=== PATIENT | female | born 1990 | race Caucasian/White ===

== ENCOUNTER 2016-08-14 13:35 | Day surgery (SDC) | payer MEDICAID, OTHER ==
[2016-08-14] MEDS ORDERED: MIDAZOLAM 2 MG/2 ML VIAL ONE (14:34)
[2016-08-14] MEDS ORDERED: fentaNYL 100 MCG/2 ML INJ ONE (14:35)
[2016-08-14] MEDS ORDERED: NALOXONE HCL 0.4 MG/ML INJ ONE (14:35)
[2016-08-14] MEDS ORDERED: FLUMAZENIL 0.5 MG/5 ML MDV IVP ONE (14:35)
[2016-08-14] MEDS ORDERED: TRIAMCINOLONE ACETONIDE 200 MG/5 ML MDV IM ONE (15:14)
[2016-08-14] MEDS ORDERED: LIDOCAINE 1% 30 ML SDV ONE (15:14)
== END 2016-08-14 15:53 | disposition home or self-care (01) ==
LOC: FIMAGING 13:35
PROVIDERS: ATTEND Radiology Diagnostic Radiology
PROC: 3E0S33Z Introduction of Anti-inflammatory into Epidural Space, Percutaneous Approach (ICD-10-PCS; principal; 2016-08-14 15:21)
PROC: 3E0S3BZ Introduction of Anesthetic Agent into Epidural Space, Percutaneous Approach (ICD-10-PCS; principal; 2016-08-14 15:21)
DX: M54.12 Radiculopathy, cervical region (principal); M25.512 Pain in left shoulder; M25.511 Pain in right shoulder
CPT/HCPCS: J2250; J2310; J3010; J3301

== ENCOUNTER 2016-10-09 03:06 | Emergency (ER) | payer MEDICAID ==
[2016-10-09] MEDS ORDERED: HALOPERIDOL LACT 5 MG/ML INJ ONE (03:14)
[2016-10-09] MEDS ORDERED: MIDAZOLAM 2 MG/2 ML VIAL ONE (03:17)
[2016-10-09] MEDS ORDERED: OLANZapine 10 MG/2 ML VIAL IM ONE (03:23)
[2016-10-09] MEDS ORDERED: MIDAZOLAM 10 MG/2 ML VIAL IM ONE (03:25)
[2016-10-09 03:45] VITALS: TEMP 97.9
--- NOTE | 2016-10-09 04:18 | EDPHY ---
H & P Stated Complaint: chemically impaired Time Seen by Provider: 10/09/16 03:10 HPI/ROS: HPI The patient presents brought in by ambulance for combative behavior. The patient was found at [facility]. She had been drinking alcohol earlier in the night. She was agitated and yelling and screaming and thus police were called. She received Versed 5 mg IM in the ambulance and has been kicking and screaming. REVIEW OF SYSTEMS Constitutional: No fever, no chills. Eyes: No discharge. ENT: No sore throat. Cardiovascular: No chest pain, no palpitations. Respiratory: No cough, no shortness of breath. Gastrointestinal: No abdominal pain, no vomiting. Genitourinary: No hematuria. Musculoskeletal: No back pain. Skin: No rashes. Neurological: No headache. PMHx: Psychiatric disease Soc Hx: IV drug user by report PHYSICAL General Appearance: Thrashing about in the gurney, requiring security guards to restrain her Eyes: Pupils equal and round no pallor or injection ENT, Mouth: Mucous membranes moist Respiratory: There are no retractions, lungs are clear to auscultation Cardiovascular: Tachycardic rate with regular rhythm Gastrointestinal: Abdomen is soft and non-tender, no masses, bowel sounds normal Neurological: A&O, moves all extremities Skin: Warm and dry, track barton are present, ecchymoses throughout her arms and legs Musculoskeletal: Neck is supple non tender Extremities: symmetrical, full range of motion Psychiatric: The patient is agitated Source: Patient, EMS Exam Limitations: Intoxication - Personal History Tetanus Vaccine Date: 2002 - Medical/Surgical History Hx Asthma: No Hx Chronic Respiratory Disease: No Hx Diabetes: No Hx Cardiac Disease: No Hx Renal Disease: No Hx Cirrhosis: No Hx Alcoholism: No Hx HIV/AIDS: No Hx Splenectomy or Spleen Trauma: No - Social History Smoking Status: Current every day smoker Constitutional: Initial Vital Signs Temperature (C) 36.6 C 10/09/16 03:15 Heart Rate 150 H 10/09/16 03:15 Respiratory Rate 20 10/09/16 03:15 Blood Pressure 123/92 H 10/09/16 03:15 O2 Sat (%) 93 10/09/16 03:15 O2 Delivery Mode Nasal Cannula O2 (L/minute) 2 Allergies/Adverse Reactions: vancomycin [Vancomycin] Allergy (Intermediate, Verified 08/12/16 08:07) Rash sertraline HCl [From Zoloft] Allergy (Mild, Verified 08/12/16 08:07) Rash lactose Allergy (Verified 08/12/16 08:37) Home Medications: Medication Instructions Recorded Albuterol 8 puffs PO DAILY 08/12/16 Cymbalta 90 mg PO DAILY 08/12/16 Flexeril 10 MG (*) 10 mg PO DAILY 08/12/16 IBUPROFEN 600 mg PO BID PRN 08/12/16 LYRICA 100 mg PO TID 08/12/16 Xtampza ER 30 mg PO BID 08/12/16 oxyCODONE IR 10 mg PO TID PRN 08/12/16 Medical Decision Making Differential Diagnosis: This is a 25-year-old female brought in by ambulance for evaluation for combative behavior, coming from a restaurant with a bar. She has been drinking alcohol tonight, by report. She also has a history of IV drug use. Differential diagnosis includes alcohol intoxication, substance abuse, psychosis. In the emergency room, patient required additional dose of Versed 5 IM and then was able to sleep comfortably. She awoke about an hour and half later and appeared clearly intoxicated with alcohol. She denies any other complaints. She wants to go home, however she is on in [facility] hold feel it is best that she goes there. Police were called and had to escort her out in handcuffs. - Data Points Medications Given: Discontinued Medications Midazolam HCl (Versed) 5 mg IM EDNOW ONE Stop: 10/09/16 03:26 Last Admin: 10/09/16 03:35 Dose: 5 mg Olanzapine (Zyprexa Im Injection) 10 mg IM EDNOW ONE Stop: 10/09/16 03:24 Last Admin: 10/09/16 04:27 Dose: Not Given Departure - Departure Disposition: Home, Routine, Self-Care Clinical Impression: Polysubstance abuse Alcoholic intoxication Qualifiers: Complication of substance-induced condition: with delirium Qualified Code(s): F10.921 - Alcohol use, unspecified with intoxication delirium Condition: Good Instructions: Alcohol Intoxication (ED) Referrals: [facility] [Outside] - As per Instructions
[2016-10-09 04:36] VITALS: O2SAT 96
[2016-10-09 05:50] VITALS: BP 110/65; PULSE 90; RESP 18
== END 2016-10-09 06:05 | disposition home or self-care (01) ==
LOC: EDUNIT#
DX: F19.10 Other psychoactive substance abuse, uncomplicated (principal); F10.921 Alcohol use, unspecified with intoxication delirium; F17.200 Nicotine dependence, unspecified, uncomplicated
CPT/HCPCS: J2250

== ENCOUNTER → 2016-11-10 | Outpatient (CLI) | payer MEDICAID ==
[~2016-11-10] MED LIST: DEPO METHYLPREDNISOLONE 40 MG/ML SDV ONE; IOPAMIDOL (ISOVUE 370) 100 ML BTL IV ONE; LIDOCAINE 1% 300 MG/30 ML SDV ONE; ROPIVACAINE HCL 150 MG/30 ML INJ ONE
== END ==
LOC: FIMAGING 13:20
PROVIDERS: ATTEND Clinical Nurse Specialist
PROC: 3E0U3BZ Introduction of Anesthetic Agent into Joints, Percutaneous Approach (ICD-10-PCS; principal; 2016-11-10)
PROC: 3E0U33Z Introduction of Anti-inflammatory into Joints, Percutaneous Approach (ICD-10-PCS; principal; 2016-11-10)
DX: M25.511 Pain in right shoulder (principal); M54.12 Radiculopathy, cervical region
CPT/HCPCS: J1030; J2795; Q9967

== ENCOUNTER 2017-10-08 01:25 | Emergency (ER) | payer OTHER ==
--- NOTE | 2017-10-08 02:46 | EDPHY ---
H & P Stated Complaint: bilat hand swelling secondary to IVDU, noticed/started 10/06 Time Seen by Provider: 10/08/17 01:47 HPI/ROS: HPI The patient presents with bilateral hand swelling on the right greater than the left which has been present for the last 3 days. She injected heroin into her right hand but thinks that she missed her vein. Her swelling began shortly after that, it is on the dorsal surface of her hand. She does not have any pain in her arm. She checked her temperature at home and was noted to have a fever. She used cocaine just prior to arrival in the emergency department. She has no difficulty moving her fingers.. REVIEW OF SYSTEMS Constitutional: No fever, no chills. Eyes: No discharge. ENT: No sore throat. Cardiovascular: No chest pain, no palpitations. Respiratory: No cough, no shortness of breath. Gastrointestinal: No abdominal pain, no vomiting. Genitourinary: No hematuria. Musculoskeletal: No back pain. Skin: No rashes. Neurological: No headache. PMHx: IV drug use Soc Hx: Housed, college student PHYSICAL General Appearance: Alert, no distress Eyes: Pupils equal and round no pallor or injection ENT, Mouth: Mucous membranes moist Respiratory: There are no retractions, lungs are clear to auscultation Cardiovascular: Tachycardic rate and regular rhythm Gastrointestinal: Abdomen is soft and non-tender, no masses, bowel sounds normal Neurological: A&O, moves all extremities Skin: Warm and dry, no rashes Musculoskeletal: Neck is supple non tender Extremities: Right hand is slightly edematous with no erythema, it is diffusely tender to palpation on the dorsal surface. She has 2+ radial pulses, sensation intact to light touch, brisk cap refill Psychiatric: Patient is oriented X 3, there is no agitation Source: Patient Exam Limitations: No limitations - Personal History LMP (Females 10-55): 8-14 Days Ago Current Tetanus/Diphtheria Vaccine: No Current Tetanus Diphtheria and Acellular Pertussis (TDAP): No Tetanus Vaccine Date: 2002 - Medical/Surgical History Hx Asthma: Yes Hx Chronic Respiratory Disease: No Hx Diabetes: No Hx Cardiac Disease: No Hx Renal Disease: No Hx Cirrhosis: No Hx Alcoholism: Yes Hx HIV/AIDS: No Hx Splenectomy or Spleen Trauma: No Other PMH: substance abuse, asthma, gallstones, cholecystectomy, bunionectomy, anxiety, depression, sacroiliac septic arthritis, insomnia, chronic back/ shoulder pain, kyphoscoliosis - Social History Smoking Status: Current every day smoker Constitutional: Initial Vital Signs Temperature (C) 37.3 C 10/08/17 01:33 Heart Rate 155 H 10/08/17 01:33 Respiratory Rate 20 10/08/17 01:33 Blood Pressure 148/106 H 10/08/17 01:33 O2 Sat (%) 90 L 10/08/17 01:33 O2 Delivery Mode Room Air Allergies/Adverse Reactions: vancomycin [Vancomycin] Allergy (Intermediate, Verified 10/08/17 01:30) Rash sertraline HCl [From Zoloft] Allergy (Mild, Verified 10/08/17 01:30) Rash lactose Allergy (Verified 10/08/17 01:30) Home Medications: Medication Instructions Recorded Albuterol 8 puffs PO DAILY 08/12/16 Cymbalta 90 mg PO DAILY 08/12/16 Flexeril 10 MG (*) 10 mg PO DAILY 08/12/16 Buprenorphin-Naloxon 8-2 mg Sl 10/08/17 Cephalexin [Keflex (*)] 500 mg PO Q6H #28 cap 10/08/17 Fluconazole [Diflucan (*)] 150 mg PO ONCE #1 tab 10/08/17 Gabapentin 10/08/17 Seroquel 10/08/17 Sodium Sulfacetamide 10/08/17 Sulfamethox/Tmp 800/160 mg 1 tab PO BID #14 tab 10/08/17 [Bactrim Ds] Medical Decision Making Procedures: Bedside right hand Ultrasound- performed and interpreted by me. Indication: Right hand swelling Findings: Mild edema without any fluid collections present, no foreign body Impression: Mild edema Differential Diagnosis: 26-year-old female with history of IV drug use presents with right hand swelling for the last 3 days after injecting into her hand. She also reports a fever at home. Here, she is afebrile, she is quite tachycardic, initially 155, now 130s. She does admit to using cocaine just prior to arrival and I suspect this is the cause of her tachycardia instead of sepsis. Ultrasound of her hand was performed which showed no fluid collections. I suspect she has a mild cellulitis of her hand. I will treat her with Keflex and Bactrim. I have given her strict return precautions. I have given her the hand surgeon for follow-up. - Data Points Medications Given: Discontinued Medications Cephalexin (Keflex 500 Mg Prepack#4) 1 btl TAKEHOME EDNOW ONE PRN Reason: Protocol Stop: 10/08/17 02:44 Last Admin: 10/08/17 02:52 Dose: 1 btl Cephalexin HCl (Keflex) 500 mg PO EDNOW ONE PRN Reason: Protocol Stop: 10/08/17 02:44 Last Admin: 10/08/17 02:51 Dose: 500 mg Trimethoprim/Sulfamethoxazole (Bactrim Ds Prepack#2) 1 btl TAKEHOME EDNOW ONE Stop: 10/08/17 02:44 Last Admin: 10/08/17 02:53 Dose: 1 btl Trimethoprim/Sulfamethoxazole (Bactrim Ds) 1 ea PO EDNOW ONE PRN Reason: Protocol Stop: 10/08/17 02:44 Last Admin: 10/08/17 02:51 Dose: 1 ea Departure - Departure Disposition: Home, Routine, Self-Care Clinical Impression: Cellulitis of hand, right Condition: Good Instructions: Polysubstance Abuse (ED) Additional Instructions: Please take the antibiotics as prescribed. You should return to the emergency department if you are worse in any way, develops any more swelling, pain in your hands. If the swelling continues, I have given you the information for follow up with the hand specialist. Referrals: Mello Alvarez MD [Medical Doctor] - As per Instructions Stand Alone Forms: School Excuse Prescriptions: Cephalexin [Keflex (*)] 500 mg PO Q6H #28 cap Fluconazole [Diflucan (*)] 150 mg PO ONCE #1 tab Sulfamethox/Tmp 800/160 mg [Bactrim Ds] 1 tab PO BID #14 tab
[2017-10-08] MEDS: CEPHALEXIN 500 MG CAP PO ONE (02:51)
[2017-10-08] MEDS: SULFAMETHOX/TMP 800/160 MG 1 TAB PO ONE (02:51)
[2017-10-08] MEDS: CEPHALEXIN 500MG PREPACK#4 BTL TAKEHOME ONE (02:52)
[2017-10-08] MEDS: SULFAMET/TMP DS PREPACK#2 BTL TAKEHOME ONE (02:53)
[2017-10-08 03:20] VITALS: BP 135/81
== END 2017-10-08 03:02 | disposition home or self-care (01) ==
LOC: EEVIPCON 01:25
DX: L03.113 Cellulitis of right upper limb (principal); J45.909 Unspecified asthma, uncomplicated; F17.200 Nicotine dependence, unspecified, uncomplicated

== ENCOUNTER 2017-10-15 04:38 | Emergency (ER) | payer OTHER ==
[2017-10-15] MEDS ORDERED: NS 1,000 ML IV ONE ×2 (04:45→06:23)
[2017-10-15] MEDS ORDERED: LORazepam 2 MG/ML INJ IVP ONE (04:46)
--- NOTE | 2017-10-15 04:48 | EDPHY ---
H & P Stated Complaint: Cocaine/heroin IV use, Time Seen by Provider: 10/15/17 04:46 HPI/ROS: HPI CHIEF COMPLAINT: Polysubstance abuse HISTORY OF PRESENT ILLNESS: Patient is a 26-year-old female, she presents emergency room by EMS after she injected cocaine, as well as heroin. She states around 11:00 p.m. Last night or close to 5 hr ago she injected heroin. However she is on Suboxone and she states she did not get high from the heroin. About an hour ago she injected cocaine. She states that she felt her heart racing and pelvic heart was going to stop she became concerned and called 911. EMS arrived and evaluated her brought her here to the emergency room. Patient denies any chest pain. Denies any shortness of breath. Patient arrived to the emergency room and is noted to be tachycardic in the 130s. She is tremulous. She denies any pain anywhere. Past Medical History: Polysubstance abuse, IV drug user, typically shoot IV heroin and IV cocaine. Past Surgical History: No recent surgery Social History: Polysubstance abuse. Heroin and cocaine. Family History: Noncontributory ROS REVIEW OF SYSTEMS: A comprehensive 10 point review of systems is otherwise negative aside from elements mentioned in the history of present illness. Exam Constitutional nontoxic appearing triage nursing summary reviewed, vital signs reviewed, awake/alert. Noted to be tachycardic. Eyes normal conjunctivae and sclera, EOMI, PERRLA. HENT normal inspection, atraumatic, moist mucus membranes, no epistaxis, neck supple/ no meningismus, no raccoon eyes. Respiratory clear to auscultation bilaterally, normal breath sounds, no respiratory distress, no wheezing. Cardiovascular tachycardic. regular rhythm, no murmur, no edema, distal pulses normal. Gastrointestinal soft, non-tender, no rebound, no guarding, normal bowel sounds, no distension, no pulsatile mass. Genitourinary no CVA tenderness. Musculoskeletal no midline vertebral tenderness, full range of motion, no calf swelling, no tenderness of extremities, no meningismus, good pulses, neurovascularly intact. Skin multiple injection sites throughout her body. Track barton. Neurologic slightly tremulous. awake, alert and oriented x 3, AAOx3, moves all 4 extremities equally, motor intact, sensory intact, CN II-XII intact, normal cerebellar, normal vision, normal speech. Psychiatric normal mood/affect. Heme/Lymph/Immune no lymphadenopathy. Differential Diagnosis: Includes but is not limited to in a particular order polysubstance abuse, IV drug use, cocaine overdose, tachycardia from cocaine, acute coronary syndrome, coronary vaso spasm Medical Decision Making: Plan for this patient IV establishment with fluid bolus, IV Ativan 1 mg to counter at cocaine, EKG, cardiac marker, electrolytes and close cardiac monitoring. Re-evaluation: EKG interpretation by me on record in [facility] system. Impression time of EKG 4:54 a.m., sinus tachycardia rate of 123, no ST elevation no ST depression no significant T-wave abnormalities no signs of cardiac arrhythmia. This will be sinus tachycardia. Reason for EKG cocaine toxicity. ED x-ray chest one view negative for acute cardiopulmonary disease. No pneumothorax. [id number]: Patient resting comfortably no acute distress she feels much better after IV fluids. Heart rate is currently 108 at this time. She denies any chest pain or shortness of breath. Patient's drug screen positive for cocaine and heroin. She is doing much better. Highly recommend the patient refrain from doing drugs cocaine and heroin. Explain these are very dangerous. Especially shooting up cocaine. She understands. 0719: Patient re-evaluated she is resting comfortably and she is eager for discharge. Heart rate is currently 99. She denies any chest pain or shortness of breath. She states she feels much better after IV fluids and IV Ativan. I discussed the risk of doing intravenous cocaine and that it is very dangerous she understands Source: Patient, EMS - Personal History LMP (Females 10-55): 8-14 Days Ago Current Tetanus Diphtheria and Acellular Pertussis (TDAP): No Tetanus Vaccine Date: 2002 - Medical/Surgical History Hx Asthma: Yes Hx Chronic Respiratory Disease: No Hx Diabetes: No Hx Cardiac Disease: No Hx Renal Disease: No Hx Cirrhosis: No Hx Alcoholism: Yes Hx HIV/AIDS: No Hx Splenectomy or Spleen Trauma: No Other PMH: substance abuse, asthma, gallstones, cholecystectomy, bunionectomy, anxiety, depression, sacroiliac septic arthritis, insomnia, chronic back/ shoulder pain, kyphoscoliosis - Social History Smoking Status: Current every day smoker Constitutional: Initial Vital Signs Temperature (C) 37.7 C 10/15/17 04:41 Heart Rate 133 H 06/15/18 04:41 Respiratory Rate 20 10/15/17 04:41 Blood Pressure 119/86 H 10/15/17 04:41 O2 Sat (%) 99 10/15/17 04:41 O2 Delivery Mode Room Air Allergies/Adverse Reactions: vancomycin [Vancomycin] Allergy (Intermediate, Verified 10/15/17 04:45) Rash sertraline HCl [From Zoloft] Allergy (Mild, Verified 10/15/17 04:45) Rash lactose Allergy (Verified 10/15/17 04:45) Home Medications: Medication Instructions Recorded Albuterol 8 puffs PO DAILY 08/12/16 Cymbalta 90 mg PO DAILY 08/12/16 Flexeril 10 MG (*) 10 mg PO DAILY 08/12/16 Buprenorphin-Naloxon 8-2 mg Sl 10/08/17 Cephalexin [Keflex (*)] 500 mg PO Q6H #28 cap 10/08/17 Fluconazole [Diflucan (*)] 150 mg PO ONCE #1 tab 10/08/17 Gabapentin 10/08/17 Seroquel 10/08/17 Sodium Sulfacetamide 10/08/17 Sulfamethox/Tmp 800/160 mg 1 tab PO BID #14 tab 10/08/17 [Bactrim Ds] Medical Decision Making - Data Points Laboratory Results: Laboratory Results 10/15/17 05:05 10/15/17 05:05 10/15/17 10/15/17 10/15/17 06:24 05:05 05:05 WBC RBC Hgb Hct MCV MCH MCHC RDW Plt Count MPV Neut % (Auto) Lymph % (Auto) [place] % (Auto) Eos % (Auto) Baso % (Auto) Nucleat RBC Rel Count Absolute Neuts (auto) Absolute Lymphs (auto) Absolute Monos (auto) Absolute Eos (auto) Absolute Basos (auto) Absolute Nucleated RBC Immature Gran % Immature Gran # Sodium 135 mEq/L mEq/L (135-145) Potassium 4.7 mEq/L mEq/L (3.3-5.0) Chloride 104 mEq/L mEq/L (97-110) Carbon Dioxide 19 mEq/l L mEq/l (22-31) Anion Gap 12 mEq/L mEq/L (8-16) BUN 8 mg/dL mg/dL (7-23) Creatinine 0.7 mg/dL mg/dL (0.6-1.0) Estimated GFR > 60 Glucose 90 mg/dL mg/dL (70-100) Calcium 8.8 mg/dL mg/dL (8.5-10.4) Magnesium 1.7 mg/dL mg/dL (1.6-2.3) Total Bilirubin 1.2 mg/dL mg/dL (0.1-1.4) Conjugated Bilirubin 0.8 mg/dL H mg/dL (0.0-0.5) Unconjugated Bilirubin 0.4 mg/dL mg/dL (0.0-1.1) AST 44 IU/L IU/L (14-46) ALT 33 IU/L IU/L (9-52) Alkaline Phosphatase 74 IU/L IU/L (38-126) Total Protein 6.4 g/dL g/dL (6.3-8.2) Albumin 3.8 g/dL g/dL (3.5-5.0) Beta HCG, Qual NEGATIVE Specimen Hemolysis 158 Urine Opiates Screen NON-NEGATIVE H (NEGATIVE) Urine Barbiturates NEGATIVE (NEGATIVE) Ur Phencyclidine Scrn NEGATIVE (NEGATIVE) Ur Amphetamine Screen NEGATIVE (NEGATIVE) U Benzodiazepines Scrn NEGATIVE (NEGATIVE) Urine Cocaine Screen NON-NEGATIVE H (NEGATIVE) U Marijuana (THC) Screen NEGATIVE (NEGATIVE) 10/15/17 05:05 WBC 9.90 10^3/uL H 10^3/uL (3.80-9.50) RBC 4.62 10^6/uL 10^6/uL (4.18-5.33) Hgb 14.8 g/dL g/dL (12.6-16.3) Hct 40.5 % % (38.0-47.0) MCV 87.7 fL fL (81.5-99.8) MCH 32.0 pg pg (27.9-34.1) MCHC 36.5 g/dL g/dL (32.4-36.7) RDW 12.0 % % (11.5-15.2) Plt Count 197 10^3/uL 10^3/uL (150-400) MPV 9.0 fL fL (8.7-11.7) Neut % (Auto) 57.0 % % (39.3-74.2) Lymph % (Auto) 34.1 % % (15.0-45.0) [place] % (Auto) 7.0 % % (4.5-13.0) Eos % (Auto) 1.1 % % (0.6-7.6) Baso % (Auto) 0.5 % % (0.3-1.7) Nucleat RBC Rel Count 0.0 % % (0.0-0.2) Absolute Neuts (auto) 5.64 10^3/uL 10^3/uL (1.70-6.50) Absolute Lymphs (auto) 3.38 10^3/uL H 10^3/uL (1.00-3.00) Absolute Monos (auto) 0.69 10^3/uL 10^3/uL (0.30-0.80) Absolute Eos (auto) 0.11 10^3/uL 10^3/uL (0.03-0.40) Absolute Basos (auto) 0.05 10^3/uL 10^3/uL (0.02-0.10) Absolute Nucleated RBC 0.00 10^3/uL 10^3/uL (0-0.01) Immature Gran % 0.3 % % (0.0-1.1) Immature Gran # 0.03 10^3/uL 10^3/uL (0.00-0.10) Sodium Potassium Chloride Carbon Dioxide Anion Gap BUN Creatinine Estimated GFR Glucose Calcium Magnesium Total Bilirubin Conjugated Bilirubin Unconjugated Bilirubin AST ALT Alkaline Phosphatase Total Protein Albumin Beta HCG, Qual Specimen Hemolysis Urine Opiates Screen Urine Barbiturates Ur Phencyclidine Scrn Ur Amphetamine Screen U Benzodiazepines Scrn Urine Cocaine Screen U Marijuana (THC) Screen Medications Given: Discontinued Medications Sodium Chloride (Ns) 1,000 mls @ 0 mls/hr IV EDNOW ONE; Wide Open PRN Reason: Protocol Stop: 10/15/17 04:46 Last Admin: 10/15/17 04:52 Dose: 1,000 mls Sodium Chloride (Ns) 1,000 mls @ 0 mls/hr IV ONCE ONE PRN Reason: Wide Open Stop: 10/15/17 06:24 Last Admin: 10/15/17 06:30 Dose: 1,000 mls Lorazepam (Ativan Injection) 1 mg IVP EDNOW ONE Stop: 10/15/17 04:47 Last Admin: 10/15/17 04:52 Dose: 1 mg Departure - Departure Disposition: Home, Routine, Self-Care Clinical Impression: Polysubstance abuse Condition: Good Instructions: Polysubstance Abuse (ED) Additional Instructions: 1. I recommend he refrain from doing drugs. Referrals: NONE *PRIMARY CARE P,. [Primary Care Provider] - As per Instructions
--- NOTE | 2017-10-15 04:56 | CPEKG ---
Heart Rate: 123 RR Interval: 488 P-R Interval: 128 QRSD Interval: 78 QT Interval: 328 QTC Interval: 470 P [place]: 76 QRS [place]: 74 T Wave [place]: 55 EKG Severity - BORDERLINE ECG - EKG Impression: SINUS TACHYCARDIA EKG Impression: PROBABLE LEFT ATRIAL ABNORMALITY Electronically Signed By: Des Fonseca 15-Oct-2017 07:27:11
[2017-10-15 05:15] LABS: PLATELET COUNT 197 10^3/uL (150-400)
[2017-10-15 07:36] VITALS: BP 102/89
== END 2017-10-15 07:36 | disposition home or self-care (01) ==
LOC: EDUNIT#
DX: F19.10 Other psychoactive substance abuse, uncomplicated (principal); J45.909 Unspecified asthma, uncomplicated; F17.200 Nicotine dependence, unspecified, uncomplicated; E86.9 Volume depletion, unspecified
CPT/HCPCS: 80305; 96374; J2060

== ENCOUNTER 2017-10-30 22:17 | Emergency (ER) | payer OTHER ==
--- NOTE | 2017-10-30 23:04 | EDPHY ---
H & P Stated Complaint: USE FEMORAL VEINS AND ARTERIES DRUG USE/LARGE BRUISE Time Seen by Provider: 10/30/17 22:34 HPI/ROS: HPI The patient presents with ecchymoses of bilateral thighs which have been present for the last 1 week and are getting progressively larger in size. She has a history of injection drug use of heroin and cocaine and has been injecting into her femoral region, including her artery and vein. She has been injecting in this region for the last 2 weeks. About 1 week ago she began to notice ecchymoses of her anterior thighs which have gotten progressively larger and slightly more painful. She has last used a few days ago in the area. She has not had any fevers or chills, difficulty walking, nausea or vomiting. She has not had any drainage of fluid from her injection sites. She last used prior to arrival. REVIEW OF SYSTEMS Constitutional: No fever, no chills. Eyes: No discharge. ENT: No sore throat. Cardiovascular: No chest pain, no palpitations. Respiratory: No cough, no shortness of breath. Gastrointestinal: No abdominal pain, no vomiting. Genitourinary: No hematuria. Musculoskeletal: No back pain. Skin: No rashes. Neurological: No headache. PMHx: Injection drug use as above, asthma, depression Soc Hx: Lives with her aunt in [place], previously had 3 years of sobriety PHYSICAL General Appearance: Alert, no distress Eyes: Pupils equal and round no pallor or injection ENT, Mouth: Mucous membranes moist Respiratory: Breathing comfortably Cardiovascular: Tachycardic rate and regular rhythm Gastrointestinal: Abdomen is soft and non-tender, no masses, bowel sounds normal Neurological: A&O, moves all extremities Skin: Bilateral open ulcerations just distal to her inguinal ligament with no surrounding erythema, warmth, edema, there are symmetric ecchymoses to her anterior thighs distal to these ulcerations which are large and cover her entire proximal half of anterior thigh Musculoskeletal: Neck is supple non tender Extremities: symmetrical, full range of motion Psychiatric: Patient is oriented X 3, there is no agitation Source: Patient Exam Limitations: No limitations - Personal History LMP (Females 10-55): 15-21 Days Ago Current Tetanus Diphtheria and Acellular Pertussis (TDAP): Yes Tetanus Vaccine Date: 2002 - Medical/Surgical History Hx Asthma: Yes Hx Chronic Respiratory Disease: No Hx Diabetes: No Hx Cardiac Disease: No Hx Renal Disease: No Hx Cirrhosis: No Hx Alcoholism: Yes Hx HIV/AIDS: No Hx Splenectomy or Spleen Trauma: No Other PMH: substance abuse, asthma, gallstones, cholecystectomy, bunionectomy, anxiety, depression, sacroiliac septic arthritis, insomnia, chronic back/ shoulder pain, kyphoscoliosis - Social History Smoking Status: Heavy smoker Constitutional: Initial Vital Signs Temperature (C) 36.9 C 10/30/17 22:25 Heart Rate 140 H 10/30/17 22:25 Respiratory Rate 22 H 10/30/17 22:25 Blood Pressure 134/107 H 10/30/17 22:25 O2 Sat (%) 91 L 10/30/17 22:25 O2 Delivery Mode Room Air Allergies/Adverse Reactions: vancomycin [Vancomycin] Allergy (Intermediate, Verified 10/15/17 04:45) Rash sertraline HCl [From Zoloft] Allergy (Mild, Verified 10/15/17 04:45) Rash lactose Allergy (Verified 10/15/17 04:45) Home Medications: Medication Instructions Recorded Albuterol 8 puffs PO DAILY 08/12/16 Cymbalta 90 mg PO DAILY 08/12/16 Flexeril 10 MG (*) 10 mg PO DAILY 08/12/16 Gabapentin 10/08/17 Seroquel 10/08/17 Sulfamethox/Tmp 800/160 mg 1 tab PO BID #14 tab 10/08/17 [Bactrim Ds] Medical Decision Making Procedures: Bedside bilateral thigh soft tissue Ultrasound- performed and interpreted by me. Indication: IV drug use with soft tissue swelling Findings: There is no cobblestoning, no areas of fluid collection, femoral veins are collapsible bilaterally Impression: No sonographic evidence of abscess, cellulitis, proximal DVT Differential Diagnosis: 26-year-old female with history of injection drug use presents with bilateral anterior thigh ecchymoses which have been present for the last 1 week getting progressively bigger. This is in the setting of injection into her femoral region, she believes into both the vein and artery. On exam, she is tachycardic, however she has recently use cocaine, she is feeling anxious, on review of old records resting heart rate is 110-130. She does not have any areas of fluctuance, however ultrasound was performed by me and I did not identify any fluid collections of her anterior thighs. I do not suspect she has a hematoma or abscess. I believe she has injury to her vessels causing this amount of ecchymoses and I have explained this to her. There is no sign of any active bleeding. I have instructed her to use ice packs or heat packs to treat the pain. We discussed her stopping her injection drug use and she is motivated. She recognizes that she has been to the ER on multiple occasions over the last 1 month. She did have 3 years of sobriety previously, she does have a good support network now. She plans on going to an NA meeting tomorrow. I have a provided her information on the [facility]. Departure - Departure Disposition: Home, Routine, Self-Care Clinical Impression: Multiple ecchymoses of thigh, IVDU (intravenous drug user) Condition: Good Instructions: Polysubstance Abuse (ED), Ecchymosis (ED) Additional Instructions: I recommend that you use cold or hot compresses on your bruises. You should check out the [employer] chapter of the [facility] (https://[facility].org/ ). This is a sober active community that hosts tons of events. Return to the ER for any redness, swelling, increased pain. I have given you the information for the primary care doctor coupon redemption clerk if you would like to get a regular primary care doctor. Referrals: Ian Escoto MD [Medical Doctor] - As per Instructions
[2017-10-30 23:17] VITALS: BP 138/90
== END 2017-10-30 23:17 | disposition home or self-care (01) ==
DX: R23.3 Spontaneous ecchymoses (principal); F19.10 Other psychoactive substance abuse, uncomplicated; J45.909 Unspecified asthma, uncomplicated; F17.200 Nicotine dependence, unspecified, uncomplicated

== ENCOUNTER 2018-02-05 17:02 | Inpatient (IN) | payer OTHER ==
--- NOTE | 2018-02-05 17:35 | EDPHY ---
H & P <Veda Pepe - Last Filed: 02/05/18 21:06> Smoking Status: Heavy smoker <Hill Cunningham - Last Filed: 02/06/18 01:47> Time Seen by Provider: 02/05/18 17:14 HPI/ROS: CHIEF COMPLAINT: Palpitations and shortness of breath HISTORY OF PRESENT ILLNESS: The patient is a 27-year-old female with history of anxiety, depression and polysubstance abuse including here when and cocaine use. Currently she states that she did IV cocaine approximately an hour and half ago felt sudden onset of her heart racing and shortness of breath. She states she typically has these same symptoms when she uses cocaine but they feel more intense this time. She she states she is certain that this was not cocaine it was something else. She denies other drug use today including no heroin. She denies any chest pain. She denies and has not missed any periods. REVIEW OF SYSTEMS: Constitutional: No fever, no chills. Eyes: No discharge. ENT: No sore throat. Cardiovascular: No chest pain, + palpitations. Respiratory: No cough, + shortness of breath. Gastrointestinal: No abdominal pain, no vomiting. Genitourinary: No hematuria. Musculoskeletal: No back pain. Skin: No rashes. Neurological: No headache. (Hill Cunningham) Physical Exam: General Appearance: Alert and no distress. Non diaphoretic Eyes: Pupils equal and round no injection. Respiratory: Chest is nontender, lungs are clear to auscultation. No respiratory distress Cardiac: regular rate and rhythm. Gastrointestinal: Abdomen is soft and nontender, no masses, bowel sounds normal. Musculoskeletal: Neck is supple and nontender. Extremities have full range of motion and are nontender. Skin: No rashes multiple scars to bilateral antecubital fossas. Neuro: Alert and oriented (Hill Cunningham) Constitutional: Initial Vital Signs Temperature (C) 36.5 C 02/05/18 17:07 Heart Rate 144 H 02/05/18 17:07 Respiratory Rate 18 02/05/18 17:07 Blood Pressure 149/88 H 02/05/18 17:07 O2 Sat (%) 98 02/05/18 17:07 O2 Delivery Mode Room Air Allergies/Adverse Reactions: vancomycin [Vancomycin] Allergy (Intermediate, Verified 10/15/17 04:45) Rash sertraline HCl [From Zoloft] Allergy (Mild, Verified 10/15/17 04:45) Rash lactose Allergy (Verified 10/15/17 04:45) Home Medications: Medication Instructions Recorded Albuterol [Proventil Inhaler HFA 2 puffs IH DAILY PRN 08/12/16 (*)] Cyclobenzaprine [Flexeril 10 MG 20 mg PO HS 08/12/16 (*)] DULoxetine [Cymbalta 60 MG (*)] 60 mg PO HS 08/12/16 Gabapentin [Neurontin] 600 mg PO HS 10/08/17 QUEtiapine FUMARATE [Seroquel 50 200 mg PO HS 10/08/17 mg (*)] Medical Decision Making - Diagnostics Imaging: I viewed and interpreted images myself <Veda Pepe - Last Filed: 02/05/18 21:06> <Hill Cunningham - Last Filed: 02/06/18 01:47> - Diagnostics Imaging Results: Imaging Impressions Chest X-Ray 02/05/18 18:34 IMPRESSION: No evidence for acute cardiopulmonary abnormality. ED Course/Re-evaluation: This patient was seen and examined by me. She presents with tachycardia and shortness of breath. Chest is clear to auscultation, Cardiovascular-regular tachycardia. EKG reveals sinus tachycardia, without ST or T segment changes. Initial troponin is 0.27, consistent with acute coronary syndrome secondary to IV cocaine use and vasospasm. Aspirin 324 mg orally given. Difficult IV access , ultimately an IV was placed in the left IJ. Repeat troponin is 0. Echocardiogram pending. I agree with the assessment and plan. (Veda Pepe ) 27-year-old female here with palpitations and shortness of breath after using IV cocaine. She did have a bump in her troponin although she had no ST changes. She was admitted to hospitals with Dr. Teixeira willing to consult on the patient. She will be monitored overnight for any adverse events. (Hill Cunningham) Differential Diagnosis: Differential diagnosis includes though it is not limited to pneumonia, pneumothorax, pulmonary embolism, aortic dissection, pericarditis, acute coronary syndrome. (Veda Pepe) - Data Points Laboratory Results: Laboratory Results 02/05/18 16:45 02/05/18 16:45 02/05/18 02/05/18 02/05/18 18:54 17:53 16:45 WBC RBC Hgb Hct MCV MCH MCHC RDW Plt Count Sodium Potassium Chloride Carbon Dioxide Anion Gap BUN Creatinine Estimated GFR Glucose Calcium Total Bilirubin 0.5 mg/dL mg/dL (0.1-1.4) Conjugated Bilirubin 0.3 mg/dL mg/dL (0.0-0.5) Unconjugated Bilirubin 0.2 mg/dL mg/dL (0.0-1.1) AST 43 IU/L IU/L (14-46) ALT 35 IU/L IU/L (9-52) Alkaline Phosphatase 101 IU/L IU/L (38-126) POC Troponin I 0.00 ng/mL ng/mL 0.25 ng/mL H ng/mL (0.00-0.08) (0.00-0.08) Total Protein 6.6 g/dL g/dL (6.3-8.2) Albumin 3.7 g/dL g/dL (3.5-5.0) Beta HCG, Qual 02/05/18 02/05/18 02/05/18 16:45 16:45 16:45 WBC 14.12 10^3/uL H 10^3/uL (3.80-9.50) RBC 4.75 10^6/uL 10^6/uL (4.18-5.33) Hgb 14.3 g/dL g/dL (12.6-16.3) Hct 41.7 % % (38.0-47.0) MCV 87.8 fL fL (81.5-99.8) MCH 30.1 pg pg (27.9-34.1) MCHC 34.3 g/dL g/dL (32.4-36.7) RDW 12.0 % % (11.5-15.2) Plt Count 406 10^3/uL H 10^3/uL (150-400) Sodium 139 mEq/L mEq/L (135-145) Potassium 5.1 mEq/L H mEq/L (3.3-5.0) Chloride 107 mEq/L mEq/L (97-110) Carbon Dioxide 23 mEq/l mEq/l (22-31) Anion Gap 9 mEq/L mEq/L (8-16) BUN 11 mg/dL mg/dL (7-23) Creatinine 0.5 mg/dL L mg/dL (0.6-1.0) Estimated GFR > 60 Glucose 114 mg/dL H mg/dL (70-100) Calcium 9.5 mg/dL mg/dL (8.5-10.4) Total Bilirubin Conjugated Bilirubin Unconjugated Bilirubin AST ALT Alkaline Phosphatase POC Troponin I Total Protein Albumin Beta HCG, Qual NEGATIVE Medications Given: Cyclobenzaprine HCl (Flexeril) 10 mg PO TID [facility] Stop: 08/04/18 21:59 Last Admin: 02/05/18 22:26 Dose: 10 mg Diphenoxylate HCl/Atropine (Lomotil) 1 tab PO QID PRN PRN Reason: Diarrhea/Loose Stools Stop: 08/04/18 20:44 Last Admin: 02/05/18 23:50 Dose: 1 tab Duloxetine HCl (Cymbalta) [address] [facility] Stop: 08/04/18 22:44 Last Admin: 02/05/18 23:49 Dose: 60 mg Gabapentin (Neurontin) [address] [facility] Stop: 08/04/18 22:44 Last Admin: 02/05/18 23:49 Dose: 600 mg Labetalol HCl (Trandate) 100 mg PO BID [facility] Stop: 08/04/18 20:59 Last Admin: 02/05/18 22:25 Dose: 100 mg Lorazepam (Ativan) 1 mg PO Q6HRS [facility] Stop: 08/05/18 00:00 Last Admin: 02/05/18 23:49 Dose: 1 mg Melatonin (Melatonin) [address] [facility] Stop: 08/04/18 20:59 Last Admin: 02/05/18 22:25 Dose: 3 mg Oxycodone HCl (Oxycodone Ir) 30 mg PO Q4HRS PRN PRN Reason: Pain, Severe Able to Take PO Stop: 02/15/18 20:46 Last Admin: 02/06/18 00:00 Dose: 30 mg Oxycodone HCl (Oxycontin) 20 mg PO BID [facility] Stop: 02/15/18 21:14 Last Admin: 02/05/18 22:26 Dose: 20 mg Quetiapine Fumarate (Seroquel) [address] [facility] Stop: 08/04/18 22:44 Last Admin: 02/05/18 23:49 Dose: 200 mg Zolpidem Tartrate (Ambien) 10 mg PO HS PRN PRN Reason: Sleep/Insomnia Stop: 08/04/18 19:18 Last Admin: 02/06/18 00:00 Dose: 10 mg Discontinued Medications Aspirin (Aspirin) 324 mg PO EDNOW ONE Stop: 02/05/18 18:35 Last Admin: 02/05/18 18:41 Dose: 324 mg Lorazepam (Ativan) 1 mg PO EDNOW ONE Stop: 02/05/18 17:40 Last Admin: 02/05/18 17:40 Dose: 1 mg Point of Care Test Results: Chemistry 02/05/18 02/05/18 18:54 17:53 POC Troponin I 0.00 ng/mL ng/mL 0.25 ng/mL H ng/mL (0.00-0.08) (0.00-0.08) Departure <Veda Pepe - Last Filed: 02/05/18 21:06> <Hill Cunningham - Last Filed: 02/06/18 01:47> - Departure Disposition: [facility] Acute Clinical Impression: Acute coronary syndrome Condition: Fair
[2018-02-05] MEDS ORDERED: LORazepam 1 MG TAB ONE (17:38)
[2018-02-05] MEDS ORDERED: LORazepam 1 MG TAB PO ONE (17:39)
--- NOTE | 2018-02-05 18:02 | CPEKG ---
Test Reason : OPEN Blood Pressure : / mmHG Vent. Rate : 119 BPM Atrial Rate : 119 BPM P-R Int : 105 ms QRS Dur : 081 ms QT Int : 321 ms P-R-T Axes : 076 078 025 degrees QTc Int : 452 ms Sinus tachycardia Biatrial enlargement Minimal ST depression, inferior leads Confirmed by Bakari Zepeda ([id number]) on 02/05/2018 6:02:23 PM Referred By: Confirmed By:Bakari Zepeda
[2018-02-05] MEDS ORDERED: ASPIRIN 81 MG CHEWABLE TAB PO ONE (18:34)
[2018-02-05] MEDS ORDERED: ACETAMINOPHEN 325 MG TAB PO PRN (19:19)
[2018-02-05] MEDS ORDERED: ZOLPIDEM TARTRATE 5 MG TAB PO PRN (19:19)
[2018-02-05] MEDS ORDERED: ONDANSETRON 4 MG/2 ML VIAL IVP PRN (19:19)
--- NOTE | 2018-02-05 19:47 | PDGENHP ---
History and Physical History and Physical: CC: Chest pain and tachycardia after cocaine injection HISTORY: This patient who has a long history of injection drug use comes into the ER tonight complaining of chest discomfort and with rapid heart rate after injecting what she thought was cocaine, and she was concerned that there may have been other substances involved. She also had nausea sweating and dyspnea. In the ER she was given a dose of Ativan and feel somewhat better now. The patient had blood test showing an initial minimal troponin elevation with a normal EKG. I am called to see the patient for admission to the hospital. Currently she feels quite anxious. She denies having any diarrhea. She has not vomited. She has not had any fevers and does not think she has any infections. She says that her ejection sore primarily on her arms. Patient tells me that she injected what she thought was cocaine at about 5 o' clock this evening. She also says that she uses cocaine daily as well as somewhere around 3 g of hair when daily all injected. These are steady doses for her. She also tells me that she is wanting to stop using these medicines and recently saw her medical provider who prescribed Suboxone and she was to start taking that and then follow up at the end of the prescribed dose with her physician to transition off of the hair when with ongoing Suboxone therapy. She tells me that she only has taken 1 dose of her Suboxone which was today. States her last hepatitis and HIV tests were 9 months ago. States she gets her needles from a local clean source. Denies use of any other street drugs or alcohol ROS: A comprehensive 10 system review revealed no other significant findings PAST MEDICAL HISTORY: *Long history of injection drug use with 1st related admission here for and SI joint infection in 2008; drugs have included cocaine heroin *Mental health disorders include generalized anxiety disorder, depression, borderline personality disorder, obsessive-compulsive disorder according to various notes in the chart * septic arthritis of SI joint * cellulitis related to IV drug use * Asthma * chronic pain syndrome in shoulder * tobacco abuse history * eating disorders mention in 1 prior hospital note FAMILY MEDICAL HISTORY: COPD Breast cancer SOCIAL HISTORY: Ongoing injection drug use MEDICATIONS: The patients list has been reconciled by our clinical pharmacist in the EMR. I have reviewed the list and ordered appropriate medicines. note that the patient told me about the Suboxone as above, and I discussed this earlier with the med reconcile pharmacist who said she got the same history and believes that this was a real prescription, but this is not added on to her med reconcile list as of yet. PHYSICAL EXAMINATION: Vital Signs: Initial blood pressure 149/88 and pulse 144 which was sinus on tele per the ER staff. Her blood pressure is now better, her pulse is now fluctuating between 90 and 115 as I visit her all in sinus on the monitor. Respirations are normal rate and there is no fever Huc: Sinus tachycardia variable rates Examination: General: alert, oriented, good mentation, fairly anxious Pupils are severely dilated, no pylori erection at this time, no tremor Neurologic: Not confused not hallucinating, not showing signs of mathew, normal speech/language, normal beater tender, no focal weakness Skin: warm, dry, good color, no rash; there are numerous recent needle tracks on both arms none of which appear infected HEENT: normal Neck: no mass or jvd Resps: relaxed Lungs: clear breath sounds Heart: regular, tachycardic, no murmur Abdomen: soft, nondistended, nontender, +BS, no mass Lower Extremities: no edema, warm No Bleeding or bruising IV site: looks normal LABORATORY DATA: 1st troponin elevated 0.25, 2nd troponin undetectable White blood cell count elevated at 14,000 Negative test RADIOLOGY STUDIES: Chest x-ray done in the ER today of reviewed image which shows severe hyperexpansion of lung fang 12 LEAD EKG: I reviewed the tracing from the ER tonight which shows sinus tachycardia without other specific abnormalities, there is nothing that looks ischemic ASSESSMENT: * chest pain and minimally elevated cardiac troponin after injection cocaine use earlier today associated with sinus tachycardia in the 140s * non STEMI due to above * no evidence of heart failure * ongoing injection drug use which is a chronic issue for her, currently using daily cocaine and daily 3 g heroin * desire to quit injection drug use and is working with an outpatient physician and has been prescribed Suboxone which she has not really gotten onto yet * multiple needle tracks in arms no evidence of infection at these at present * 9 months since her last a hepatitis and HIV testing PLANS: * Placement on PCU * Continuous cardiac monitoring * Frequent vital sign checks * Serial troponin EKGs * Stat echocardiogram has been ordered Dr. Teixeira is aware * I have ordered some labetalol at this time as she remains tachycardic * Other measures for her heart issues based on her clinical course and results of echocardiogram and other testing * Will not detox her from narcotics while she is in the midst of this acute cardiac episode due to increased risk of arrhythmia * Will provide oral narcotics initially and adjust doses; will also give her some muscle relaxer some anti diarrheal some Ativan and other treatments as needed to get her through this episode from the narcotic standpoint * Plan will be to have her resume her Suboxone upon discharge and go back to her original follow-up plan with her outpatient treating physician * Continue her usual mental health medications which have been ordered at this time * Will check HIV and hepatitis C I have reviewed the patient's case in detail with Hill Agosto of the ER I have reviewed the patient's past medical records as part of this assessment, including previous hospital admission records
[2018-02-05] MEDS ORDERED: LORazepam 1 MG TAB PO PRN (20:45)
[2018-02-05] MEDS ORDERED: NITROGLYCERIN 0.4 MG BTL SL PRN (20:45)
[2018-02-05] MEDS ORDERED: DIPHENOXYLATE/ATROPINE LOMOTIL 1 TAB PO PRN (20:45)
[2018-02-05] MEDS ORDERED: MELATONIN 3 MG TAB PO SCH (21:00)
[2018-02-05] MEDS ORDERED: LABETALOL HCL 5 MG/ML 20 ML MDV IVP PRN (21:18)
[2018-02-05] MEDS ORDERED: ALBUTEROL 60 PUFFS/8 GM MDI IH PRN (21:20)
[2018-02-05] MEDS: LABETALOL HCL 100 MG TAB PO SCH (22:25)
[2018-02-05] MEDS: CYCLOBENZAPRINE 10 MG TAB PO SCH (22:26)
[2018-02-05] MEDS ORDERED: GABAPENTIN 300 MG CAP PO SCH (22:45)
[2018-02-05] MEDS ORDERED: DULoxetine 60 MG CAP PO SCH (22:45)
[2018-02-05] MEDS ORDERED: QUEtiapine FUMARATE 200 MG TAB PO SCH (22:45)
[2018-02-05] MEDS: LORazepam 1 MG TAB PO SCH (23:49)
[2018-02-06] MEDS: LORazepam 1 MG TAB PO SCH (06:45)
--- NOTE | 2018-02-06 07:03 | PDMN ---
Medical Necessity Medical necessity: [facility] [place] M595 substance related disorders 2 days: high risk for severe w/d. long hx injection drug use- CP with elevated trop. non STEMI, tachycardia 140's., elevated wbc, further monitoring and tx needed. freq VS, serial EKG's, stat echo- pend., anticipate > 2 MN ongoing med nec care, tx and further eval.
--- NOTE | 2018-02-06 08:09 | ECHO ---
[email or web address] [address] [address] Main: [phone] Fax: Transthoracic Echocardiogram Name: GUILLAUME TEAGUE MR#: [id number] Study Date: 02/05/2018 Study Time: 07:12 PM Date of : 1990 Age: 27 year(s) Height: 167.6 cm (66 in.) Weight: 55.34 kg (122 lb.) BSA: 1.62 m2 Gender: Female Examination: Echo Indication: abn ekg Image Quality: Adequate Contrast: Requested by: Hill Cunningham BP: 124 mmHg/105 mmHg Heart Rate: Rhythm: Indication: abn ekg Procedure Staff Energy Derivatives Trader: Nuris Reynoso RDCS Reading Physician: Horacio Teixeira MD Requesting Provider: Conclusions: Normal size left ventricle. Normal global systolic LV function. EF is 58 %. No regional wall motion abnormality. Normal diastolic LV function. There is a mobile echodensity within the right atrium likely representing a prominent eustachian valve. A mass cannot be excluded.. Mild mitral valve regurgitation is present. Mild tricuspid regurgitation is present. Consider TALAT if clinically indicated. Measurements: Chambers Valvular Assessment AV/MV Valvular Assessment TV/PV Normal Normal Normal Name Value Range Name Value Range Name Value Range Ao Pema (2D): 2.8 cm (1.4 cm-2.6 AV Vmax: 1.23 m/s (1 m/s-1.7 PV Vmax: 0.96 m/s (0.6 m/s-0.9 cm) m/s) m/s) IVSd (2D): 0.8 cm (0.6 cm-1.1 AV maxP mmHg ( - ) PV PGmax: 4 mmHg ( - ) cm) AV meanP mmHg ( - ) LVDd (2D): 4.4 cm (3.9 cm-5.3 LVOT Vmax: 0.88 m/s (0.7 m/s-1.1 cm) m/s) LVDs (2D): 3.1 cm (2.1 cm-4 EVAN (Vmax): 1.8 cm2 ( - ) cm) EVAN (VTI): 1.6 cm ( - ) LVPWd (2D): 0.8 cm ( - ) MV E Vmax: 0.61 m/s ( - ) LVOTd 1.8 cm 1.8 cm mm MV A Vmax: 0.46 m/s ( - ) LVEF (BP): 58 % (>=55 %) MV E/A: 1.33 ( - ) RVDd(2D): 2.2 cm (1.9 cm-3.8 MV PHT: 0.061 s ( - ) cmmm) MVA (PHT): 3.6 s ( - ) Continued Measurements: Patient: GUILLAUME TEAGUE Study Date: 02/05/2018 Page 1 of 2 07:12 PM Chambers Valvular Assessment AV/MV Name Value Name Value LADs: 2.9 cm MV DecTime: 183 m/s LADs Lon.4 cm MV E/E' Septal: 6.30 LA Area: 9.7 cm2 MV E/E' Lateral: 5.80 Additional Vessels Name Value Ao Ascendin.6 cm Inferior Vena Cava: 1.6 cm Findings: Left Ventricle: Normal size left ventricle. No LV hypertrophy. Normal global systolic LV function. EF is 58 %. No regional wall motion abnormality. Normal diastolic LV function. Right Ventricle: Normal size right ventricle. Normal RV function. Left Atrium: The left atrium is normal in size. There is a mobile echodensity within the right atrium likely representing a prominent eustachian valve. A mass cannot be excluded.. Right Atrium: The right atrium is normal in size. Mitral Valve: The mitral valve is normal in appearance and function. No mitral stenosis is present. Mild mitral valve regurgitation is present. Aortic Valve: The aortic valve is tri-leaflet. There is no significant aortic valve regurgitation. No aortic valve stenosis is present. Tricuspid Valve: The tricuspid valve is normal in appearance and function. Mild tricuspid regurgitation is present. Possible mild tricuspid valve prolapse. Pulmonic Valve: The pulmonic valve is normal in appearance and function. Trivial pulmonic valve regurgitation. Aorta: The aorta is normal. Normal size aortic root measuring 2.8 cm. Normal size ascending aorta measuring 2.6 cm. IVC: The IVC is normal sized. Pericardium: No pericardial effusion. No pleural effusion. (No Signature Object) Patient: GUILLAUME TEAGUE Study Date: 02/05/2018 Page 2 of 2 07:12 PM [id number]
[2018-02-06 09:30] VITALS: BP 86/49
--- NOTE | 2018-02-06 09:44 | ASMTCMCOM ---
CM Note CM Note Notes: Patient has been medically cleared for discharge, 26 year old female admitted via ED for signs and symptoms of anxiety after injection of cocaine, monitored overnight. She is seeking outpatient treatment for her drug addictions. Plan: DC independently. Date Signed: 02/06/2018 09:43 AM Electronically Signed By:Mary Ann Blair RN
--- NOTE | 2018-02-06 09:58 | PDDCSUM ---
Discharge Summary Discharge Summary: Date of Admission: 02/05/2018 Date of Discharge: 02/06/2018 Consults: N/A Procedures: TTE Followup: PCP Hospital Course: Loretta Gottlieb is a 27 yo F with a hx of IVDU who presented to [facility] for chest pain. She reported that she injected substance she believed was cocaine yesterday evening. On admission, initial EKG was negative for acute ST-T wave changes, initial Troponin was elevated to 0.25. Subsequent Troponins were negative. TTE was performed which showed normal EF, it noted mobile echogenicity within R atrium representing mobile eustachian valve. I discussed TTE findings with Dr. Teixeira, cardiology. This morning patient reports that chest discomfort has resolved. She is to be discharged and continue plan for detox with Suboxone and f/u with the prescribing provider. Time spent on discharge was >35 minutes with >50% of time spent on patient education and counseling.
[2018-02-06] MEDS: CYCLOBENZAPRINE 10 MG TAB PO SCH (11:54)
[2018-02-06] MEDS: LABETALOL HCL 100 MG TAB PO SCH (11:55)
--- NOTE | 2018-02-06 18:56 | CPEKG ---
Test Reason : OPEN Blood Pressure : / mmHG Vent. Rate : 077 BPM Atrial Rate : 077 BPM P-R Int : 119 ms QRS Dur : 087 ms QT Int : 467 ms P-R-T Axes : 067 073 078 degrees QTc Int : 529 ms Sinus rhythm Prolonged QT interval Compared with 02/05/2018 HR slower, QT longer Confirmed by Monica Alvarez ([id number] on 02/06/2018 6:56:34 PM Referred By: Confirmed By:Monica Alvarez
[2018-02-07 02:19] LABS: HEPATITIS C ANTIBODY TOTAL NEGATIVE (NEGATIVE); HIV TYPE 1 AND 2 NEGATIVE (NEGATIVE)
== END 2018-02-06 11:44 | disposition home or self-care (01) | DRG 313 ==
LOC: OBSVTOIN 19:29 → F2W 21:00
PROVIDERS: ADMIT Internal Medicine; ATTEND Internal Medicine
DX: R07.9 Chest pain, unspecified (principal); F14.90 Cocaine use, unspecified, uncomplicated; F11.90 Opioid use, unspecified, uncomplicated; F41.9 Anxiety disorder, unspecified; F32.9 Major depressive disorder, single episode, unspecified; F60.3 Borderline personality disorder; F42.9 Obsessive-compulsive disorder, unspecified; J45.909 Unspecified asthma, uncomplicated; G89.4 Chronic pain syndrome; Z72.0 Tobacco use
CPT/HCPCS: 80307; 84484-PO; G0472; G0480

== ENCOUNTER → 2018-07-04 | Outpatient (CLI) | payer OTHER | LOC: FIMAGING 09:28 | PROVIDERS: ATTEND Family Medicine | DX: S42.032A Displaced fracture of lateral end of left clavicle, initial encounter for closed fracture (principal); M25.512 Pain in left shoulder ==